=== PATIENT | female | born 1965 | race Two or more races ===

== ENCOUNTER 2022-02-10 16:08 | Inpatient (IN) ==
[2022-02-10 17:20] LABS: Basophils # (auto) 0.07 K/uL (0-0.2); Basophils % (auto) 0.6 %; Eosinophils # (auto) 0.25 K/uL (0-0.50); Eosinophils % (auto) 2.3 %; Hematocrit (blood only) 37.4 % (34.1-44.9); Hemoglobin 12.6 g/dl (12.0-16.0); Immature Granulocytes # (auto) 0.03 K/uL (0.00-0.02); Immature Granulocytes % (auto) 0.3 %; Lymphocytes # (auto) 3.29 K/uL (1.2-3.4); Lymphocytes % (auto) 30.4 %; Mean Corpuscular Hemoglobin 26.8 pg (25.0-34.0); Mean Corpuscular Hgb Conc 33.7 g/dL (32.0-36.0); Mean Corpuscular Volume 79.6 fL (80.0-100.0); Mean Platelet Volume 10.5 fL (9.4-12.3); Monocytes # (auto) 0.61 K/uL (0.24-0.82); Monocytes % (auto) 5.6 %; Neutrophils # (auto) 6.58 K/uL (1.4-6.5); Neutrophils % (auto) 60.8 %; Platelet Count 247 K/uL (130-400); RDW Coefficient of Variation 13.5 % (11.5-14.5); RDW Standard Deviation 38.6 fL (36.4-46.3); White Blood Count 10.83 K/ul (4.8-10.8)
--- NOTE | 2022-02-10 17:34 | Emergency Department Note ---
"History of Present Illness General Chief complaint: Abnormal Labs/Diagnostic Testing Stated complaint: ABNORMAL ABDOMINAL LABS Time Seen by Provider: 02/10/22 17:17 Source: patient, family (Daughter who is at the bedside), EMS and old records reviewed Mode of arrival: ambulatory Limitations: no limitations History of Present Illness Maximum Pain Intensity: 3 This patient is a 56-year-old female who comes in after having left flank pain that started yesterday morning. Its actually more up in her posterior ribs. No dysuria hematuria she took omeprazole got better she went to urgent care where they did x-ray and EKG which were unremarkable they did abdominal x-ray which supposedly had some dilated loops of bowel suspending here for a CAT scan. No fever no dysuria does hurt when she bruits. Normal bowel movement. No blood or melena stool. No fall or injury. No calf tenderness or asymmetry. Home Medications Medication Instructions Recorded Confirmed Type Bizoran--From Home Pharmacy 1 tab PO DAILY 02/10/22 02/10/22 History multivitamin 1 tab PO DAILY 02/10/22 02/10/22 History omeprazole 20 mg tablet,delayed 20 mg PO AC 02/10/22 02/10/22 History release Allergies Allergy/AdvReac Type Severity Reaction Status Date / Time shrimp Allergy Intermediate ITCHY HIVES Verified 02/10/22 19:17 Past Med/Surg History Social History Feels Safe at Home: Yes Immunizations: Past medical historychildbirth. Hemorrhoids. No history of other abdominal surgeries. No diabetes no cardiac disease no blood clot history Social history she is from [facility] she has not had any recent travel and is been here for several months Physical Exam Vital Signs Vital Signs - 24 hr 02/10/22 16:14 02/10/22 18:40 02/10/22 19:13 Temperature 36.8 C Temperature Source Temporal Artery Scan Pulse Rate 87 Pulse Rate [Apical] 88 80 Respiratory Rate 18 18 20 Respiratory Effort / Characteristics Non-Labored Respiratory Depth Normal Respiratory Pattern Regular Blood Pressure 126/89 Blood Pressure [Right Arm] 129/80 127/76 Blood Pressure Mean 101 Blood Pressure Mean [Right Arm] 96 93 Blood Pressure Position Sitting Pulse Oximetry 98 98 98 Oxygen Delivery Method Room Air Room Air Room Air Sepsis Recent Fever Within 48 Hours No Sepsis New/Unexplained Change in Mental Status No Sepsis Action Taken by Nursing No Action Required 02/10/22 20:40 Temperature Temperature Source Pulse Rate Pulse Rate [Apical] 77 Respiratory Rate 20 Respiratory Effort / Characteristics Respiratory Depth Respiratory Pattern Blood Pressure Blood Pressure [Right Arm] 136/88 Blood Pressure Mean Blood Pressure Mean [Right Arm] 104 Blood Pressure Position Pulse Oximetry 99 Oxygen Delivery Method Room Air Sepsis Recent Fever Within 48 Hours Sepsis New/Unexplained Change in Mental Status Sepsis Action Taken by Nursing General: Well developed well nourished in no acute distress, breathing comfortably on room air. Normal speech HEENT: Normal cephalic atraumatic. Pupils are equal round and reactive to light. Extraocular movements are intact. Oropharynx is pink with moist mucous membranes. No swelling of the mouth lips or tongue. Neck: Supple with a midline trachea. No meningeal signs or stiffness, no JVD or bruits. No Stridor. Chest: Clear to auscultation bilaterally. No wheezes or rhonchi. No increased work of breathing. When she takes a deep breath it hurts in the left posterior chest. Heart: Regular rate and rhythm without murmurs or gallops. Abdomen: Soft nontender, nondistended without rebound guarding or rigidity. Extremities: No cyanosis clubbing or edema. No calf tenderness or assymetry Spine/Back. Non tender to palpation. No CVA tenderness Skin: Good turgor without rashes. Neurologic exam: Cranial nerves two through 12 are intact. Motor and sensation are intact and symmetrical throughout. Course Administered Medications Sodium Chloride (Nss 1000ml) 1,000 mls @ 125 mls/hr IV .Q8H [facility] Stop: 03/12/22 19:44 Last Admin: 02/10/22 19:55 Dose: 125 mls/hr Documented By: DEBBIEG Discontinued Medications Ioversol (Optiray 320 125ml) 119 ml IV ONCE ONE Stop: 02/10/22 18:18 Last Admin: 02/10/22 18:17 Dose: 1 ml Documented By: LUCIO Medical Decision Making Differential Diagnosis Intra-abdominal process, infection, pneumothorax, pulmonary embolism, kidney stone, kidney disease, electrolyte or metabolic abnormal Medical Records Attestation: I reviewed the patient's medical records. Home Medications Current Medication List: was personally reviewed by me Laboratory Data Attestation: I reviewed the patient's lab results. Result diagrams: 02/10/22 17:14 02/10/22 17:14 Lab Results 02/10/22 02/10/22 02/10/22 Range/Units 17:14 17:14 18:48 WBC 10.83 H (4.8-10.8) K/ul RBC 4.70 (3.93-5.22) M/uL Hgb 12.6 (12.0-16.0) g/dl Hct 37.4 (34.1-44.9) % MCV 79.6 L (80.0-100.0) fL MCH 26.8 (25.0-34.0) pg MCHC 33.7 (32.0-36.0) g/dL RDW Std Deviation 38.6 (36.4-46.3) fL RDW Coeff of Anita 13.5 (11.5-14.5) % Plt Count 247 (130-400) K/uL MPV 10.5 (9.4-12.3) fL Immature Gran % (Auto) 0.3 % Neut % (Auto) 60.8 % Lymph % (Auto) 30.4 % [place] % (Auto) 5.6 % Eos % (Auto) 2.3 % Baso % (Auto) 0.6 % Neut # (Auto) 6.58 H (1.4-6.5) K/uL Lymph # (Auto) 3.29 (1.2-3.4) K/uL [place] # (Auto) 0.61 (0.24-0.82) K/uL Eos # (Auto) 0.25 (0-0.50) K/uL Baso # (Auto) 0.07 (0-0.2) K/uL Immature Gran # (Auto) 0.03 H (0.00-0.02) K/uL Sodium 139 (136-145) mmol/L Potassium 3.9 (3.5-5.1) mmol/L Chloride 104 (98-107) mmol/L Carbon Dioxide 28 (21-32) mmol/L Anion Gap 7 (3-11) BUN 14 (6-23) mg/dl Creatinine 0.70 (0.6-1.2) mg/dl Est Cr Clr Drug Dosing 79.7 ml/min Est GFR ( Amer) 113.0 ml/min Est GFR (Non-Af Amer) 97.5 ml/min BUN/Creatinine Ratio 20.0 (10-20) Glucose 94 (70-99(Fasting)) mg/dl Calcium 9.8 (8.5-10.1) mg/dl Total Bilirubin 0.5 (0.2-1.0) mg/dl AST 18 (13-39) U/L ALT 17 (7-52) U/L Alkaline Phosphatase 72 (34-104) U/L Total Protein 8.0 (6.0-8.3) gm/dl Albumin 4.6 (3.4-5.0) gm/dl Globulin 3.4 (2.5-4.0) gm/dl Albumin/Globulin Ratio 1.4 (0.9-2) Lipase 27 (11-82) U/L Urine Color Yellow Urine Appearance Clear (Clear) Urine pH 7.0 (4.5-7.5) Ur Specific [place] > 1.045 H (1.000-1.030) Urine Protein Negative (Negative) Urine Glucose (UA) Negative (Negative) Urine Ketones Negative (Negative) Urine Blood Negative (Negative) Urine Nitrite Negative (Negative) Urine Bilirubin Negative (Negative) Urine Urobilinogen Negative (Negative) Ur Leukocyte Esterase Negative (Negative) SARS-CoV-2, RNA, NAAT (NEGATIVE) 02/10/22 Range/Units 19:20 WBC (4.8-10.8) K/ul RBC (3.93-5.22) M/uL Hgb (12.0-16.0) g/dl Hct (34.1-44.9) % MCV (80.0-100.0) fL MCH (25.0-34.0) pg MCHC (32.0-36.0) g/dL RDW Std Deviation (36.4-46.3) fL RDW Coeff of Anita (11.5-14.5) % Plt Count (130-400) K/uL MPV (9.4-12.3) fL Immature Gran % (Auto) % Neut % (Auto) % Lymph % (Auto) % [place] % (Auto) % Eos % (Auto) % Baso % (Auto) % Neut # (Auto) (1.4-6.5) K/uL Lymph # (Auto) (1.2-3.4) K/uL [place] # (Auto) (0.24-0.82) K/uL Eos # (Auto) (0-0.50) K/uL Baso # (Auto) (0-0.2) K/uL Immature Gran # (Auto) (0.00-0.02) K/uL Sodium (136-145) mmol/L Potassium (3.5-5.1) mmol/L Chloride (98-107) mmol/L Carbon Dioxide (21-32) mmol/L Anion Gap (3-11) BUN (6-23) mg/dl Creatinine (0.6-1.2) mg/dl Est Cr Clr Drug Dosing ml/min Est GFR ( Amer) ml/min Est GFR (Non-Af Amer) ml/min BUN/Creatinine Ratio (10-20) Glucose (70-99(Fasting)) mg/dl Calcium (8.5-10.1) mg/dl Total Bilirubin (0.2-1.0) mg/dl AST (13-39) U/L ALT (7-52) U/L Alkaline Phosphatase (34-104) U/L Total Protein (6.0-8.3) gm/dl Albumin (3.4-5.0) gm/dl Globulin (2.5-4.0) gm/dl Albumin/Globulin Ratio (0.9-2) Lipase (11-82) U/L Urine Color Urine Appearance (Clear) Urine pH (4.5-7.5) Ur Specific [place] (1.000-1.030) Urine Protein (Negative) Urine Glucose (UA) (Negative) Urine Ketones (Negative) Urine Blood (Negative) Urine Nitrite (Negative) Urine Bilirubin (Negative) Urine Urobilinogen (Negative) Ur Leukocyte Esterase (Negative) SARS-CoV-2, RNA, NAAT NEGATIVE (NEGATIVE) Imaging Data Radiologist's Impression: Abdomen/Pelvis CT 02/10/22 17:30 CT angio chest PE protocol, CT abd pelvis IV con only CT DOSE: 496.58 mGy.cm HISTORY: 56 years-old Female with PE. Acute shortness of breath with left flank pain TECHNIQUE: CT abdomen and pelvis with IV contrast only was also obtained. Multiple CTA images of the chest were obtained after the intravenous a dministration of 120 ml Optiray. Coronal and sagittal MIPS were obtained from the axial data set and were submitted for review. All measurements were obtained according to NASCET criteria. A dose lowering technique was utilized adhering to the principles of ALARA. COMPARISON: None. FINDINGS: CTA: The heart is normal in size. Moderate calcifications. Atherosclerosis of the aorta without aneurysm. Unremarkable pulmonary artery. The subsegmental branches are not well opacified secondary to contrast bolus timing. CT CHEST: Unremarkable thyroid. No lymphadenopathy. No pneumothorax, pleural effusion, airspace consolidation or overt pulmonary edema. Mild subsegmental bibasilar groundglass densities suggest atelectasis. There are no suspicious pulmonary nodules or masses identified. The central airways are patent. Unremarkable soft tissues. No acute fracture. Spondylitic spurring of the thoracic spine. CT ABDOMEN/PELVIS: No pneumatosis or pneumoperitoneum. Study is degraded by respiratory motion artifact. Mild right hemidiaphragmatic elevation. Remarkable spleen, pancreas, gallbladder and adrenal glands. The liver is unremarkable. There is patency of the hepatic and portal veins. Symmetric enhancement of the kidneys. No hydronephrosis. Unremarkable urinary bladder, uterus and adnexa. Atherosclerosis of the aorta without aneurysm. There is no lymphadenopathy identified. No bowel obstruction is no small bowel obstruction. Redundancy of the sigmoid colon. There is narrowing of the sigmoid colon on image 238 series 6 without obstructing mass. Mild upstream gaseous distention of the large bowel with mild swirling of the pelvic mesentery. Mild to moderate fecal retention. Normal appendix. Unremarkable soft tissues. No acute fracture. Degenerative changes of the spine, pelvis and hips. IMPRESSION: 1. Focal narrowing of the mid sigmoid colon with upstream colonic gaseous distention. Additionally, there is mild swirling of the pelvic mesentery. Findings may represent developing sigmoid volvulus. GI consultation recommended. 2. No small bowel obstruction. 3. Moderate fecal retention. 4. No acute intrathoracic abnormality. No pulmonary emboli. ACT 112: Negative or not required by law. The above report was generated using voice recognition software. It may contain grammatical, syntax or spelling errors. Electronically signed by: Luigi Wynne M.D. 02/10/2022 6:45 PM Chest CTA 02/10/22 17:30 CT angio chest PE protocol, CT abd pelvis IV con only CT DOSE: 496.58 mGy.cm HISTORY: 56 years-old Female with PE. Acute shortness of breath with left fla nk pain TECHNIQUE: CT abdomen and pelvis with IV contrast only was also obtained. Multiple CTA images of the chest were obtained after the intravenous administration of 120 ml Optiray. Coronal and sagittal MIPS were obtained from the axial data set and were submitted for review. All measurements were obtained according to NASCET criteria. A dose lowering technique was utilized adhering to the principles of ALARA. COMPARISON: None. FINDINGS: CTA: The heart is normal in size. Moderate calcifications. Atherosclerosis of the aorta without aneurysm. Unremarkable pulmonary artery. The subsegmental branches are not well opacified secondary to contrast bolus timing. CT CHEST: Unremarkable thyroid. No lymphadenopathy. No pneumothorax, pleural effusion, airspace consolidation or overt pulmonary edema. Mild subsegmental bibasilar groundglass densities suggest atelectasis. There are no suspicious pulmonary nodules or masses identified. The central airways are patent. Unremarkable soft tissues. No acute fracture. Spondylitic spurring of the thoracic spine. CT ABDOMEN/PELVIS: No pneumatosis or pneumoperitoneum. Study is degraded by respiratory motion artifact. Mild right hemidiaphragmatic elevation. Remarkable spleen, pancreas, gallbladder and adrenal glands. The liver is unremarkable. There is patency of the hepatic and portal veins. Symmetric enhancement of the kidneys. No hydronephrosis. Unremarkable urinary bladder, uterus and adnexa. Atherosclerosis of the aorta without aneurysm. There is no lymphadenopathy identified. No bowel obstruction is no small bowel obstruction. Redundancy of the sigmoid colon. There is narrowing of the sigmoid colon on image 238 series 6 without obstructing mass. Mild upstream gaseous distention of the large bowel with mild swirling of the pelvic mesentery. Mild to moderate fecal retention. Normal appendix. Unremarkable soft tissues. No acute fracture. Degenerative changes of the spine, pelvis and hips. IMPRESSION: 1. Focal narrowing of the mid sigmoid colon with upstream colonic gaseous distention. Additionally, there is mild swirling of the pelvic mesentery. Findi ngs may represent developing sigmoid volvulus. GI consultation recommended. 2. No small bowel obstruction. 3. Moderate fecal retention. 4. No acute intrathoracic abnormality. No pulmonary emboli. ACT 112: Negative or not required by law. The above report was generated using voice recognition software. It may contain grammatical, syntax or spelling errors. Electronically signed by: Luigi Wynne M.D. 02/10/2022 6:45 PM MDM Narrative This patient comes in as described above. I saw her briefly in the waiting room. IV access was establishedand blood work was obtained she was reassessed frequently. She was sent for abdominal abdominal scan from urgent care however I am more concerned about her pain being pleuritic in the posterior chest so I ordered a CTA of the chest in addition to the CAT scan the abdomen. Additional blood work was obtained she was reassessed frequently. She has no fever here or at home. Her white count is 10. She has no significant electrolyte or metabolic abnormalities. she has had no vomiting. She was complaining more left flank pain but now is complaining more of right lower quadrant abdominal pain. I did get a call from Dr. Wynne, the radiologist ,who said that she has no evidence of PE however she does have a focal narrowing of mid sigmoid colon with upstream colonic gaseous distention additionally there is mild swelling of the pelvic mesentery. Findings may represent a developing sigmoid volvulus GI consultation is recommended. In light of this, I did consult GI and talk to Dr. Christina. He did not feel was likely a volvulus but recommended we treat with GoLytely which could treat the condition and also prep her overnight in case if she needs a colonoscopy tommorrow. I have consulted the admitting team to see her in the ER for observation and further evaluation Impression & Plan Abdominal pain, Volvulus of sigmoid colon, Lab test negative for COVID-19 virus, Acute left flank pain Discharge Plan Visit Data Chief Complaint: Abnormal Labs/Diagnostic Testing Stated Complaint: ABNORMAL ABDOMINAL LABS ED Provider: Larry Onofre Discharge Problem: Abdominal pain, Volvulus of sigmoid colon, Lab test negative for COVID-19 virus, Acute left flank pain Forms Stand Alone Forms: My [id number] | [employer] Prescriptions Prescriptions: No Action multivitamin Tablet 1 tab PO DAILY omeprazole 20 mg Tablet,Delayed Release (Dr/Ec) 20 mg PO AC Bizoran--From Home Pharmacy 1 tab PO DAILY Rx Instructions: GOOGLED---BIZORAN 5MG/20 MG--AMLODIPINE/OLMESARTAN Referrals Referrals: PCP,NO [Primary Care Provider] - : Abdominal pain Qualifiers: Abdominal location: generalized Qualified Code(s): R10.84 - Generalized abdominal pain"
[2022-02-10 17:59] LABS: Albumin Globulin Ratio 1.4 (0.9-2); Albumin Level 4.6 gm/dl (3.4-5.0); Bilirubin,Total 0.5 mg/dl (0.2-1.0); Calcium 9.8 mg/dl (8.5-10.1); Creatinine Clr Calc Pharmacy 79.7 ml/min; Est GFR (Non-African American) 97.5 ml/min; Globulin 3.4 gm/dl (2.5-4.0); Potassium 3.9 mmol/L (3.5-5.1)
[2022-02-10] MEDS ORDERED: OPTIRAY 320 125ml IV ONE (18:17)
--- NOTE | 2022-02-10 18:47 | CT Scan Report ---
CT angio chest PE protocol, CT abd pelvis IV con only CT DOSE: 496.58 mGy.cm HISTORY: 56 years-old Female with PE. Acute shortness of breath with left flank pain TECHNIQUE: CT abdomen and pelvis with IV contrast only was also obtained. Multiple CTA images of the chest were obtained after the intravenous administration of 120 ml Optiray. Coronal and sagittal MIP S were obtained from the axial data set and were submitted for review. All measurements were obtaine d according to NASCET criteria. A dose lowering technique was utilized adhering to the principles of ALARA. COMPARISON: None. FINDINGS: CTA: The heart is normal in size. Moderate calcifications. Atherosclerosis of the aorta without aneurysm. Unremarkable pulmonary artery. The subsegmental branches are not well opacified secondary to contrast bolus timing. CT CHEST: Unremarkable thyroid. No lymphadenopathy. No pneumothorax, pleural effusion, airspace consolidation o r overt pulmonary edema. Mild subsegmental bibasilar groundglass densities suggest atelectasis. There are no suspicious pulmonary nodules or masses identified. The central airways are patent. Unremarkab le soft tissues. No acute fracture. Spondylitic spurring of the thoracic spine. CT ABDOMEN/PELVIS: No pneumatosis or pneumoperitoneum. Study is degraded by respiratory motion artifact. Mild right bren diaphragmatic elevation. Remarkable spleen, pancreas, gallbladder and adrenal glands. The liver is un remarkable. There is patency of the hepatic and portal veins. Symmetric enhancement of the kidneys. No hydronephrosis. Unremarkable urinary bladder, uterus and adn exa. Atherosclerosis of the aorta without aneurysm. There is no lymphadenopathy identified. No bowel obstruction is no small bowel obstruction. Redundancy of the sigmoid colon. There is narrowing of the sigmoid colon on image 238 series 6 without obstructing mass. Mild upstream gaseous distention of th e large bowel with mild swirling of the pelvic mesentery. Mild to moderate fecal retention. Normal ap pendix. Unremarkable soft tissues. No acute fracture. Degenerative changes of the spine, pelvis and h ips. IMPRESSION: 1. Focal narrowing of the mid sigmoid colon with upstream colonic gaseous distention. Additionally, t here is mild swirling of the pelvic mesentery. Findings may represent developing sigmoid volvulus. GI consultation recommended. 2. No small bowel obstruction. 3. Moderate fecal retention. 4. No acute intrathoracic abnormality. No pulmonary emboli. ACT 112: Negative or not required by law. The above report was generated using voice recognition software. It may contain grammatical, syntax o r spelling errors. Electronically signed by: Luigi Wynne M.D. 02/10/2022 6:45 PM
[2022-02-10 19:03] LABS: Appearance Urine Clear (Clear); Bilirubin Urine Negative (Negative); Blood Urine Negative (Negative); Color Urine Yellow; Glucose Urine UA Negative (Negative); Ketones Urine Negative (Negative); Leukocyte Esterase Urine Negative (Negative); Nitrite Urine Negative (Negative); Protein Urine Negative (Negative); Specific Gravity Urine > 1.045 (1.000-1.030); Urobilinogen Urine Negative (Negative)
[2022-02-10] MEDS: SODIUM CHLORIDE 0.9% 1000ML 1,000 ML IV SCH (19:55)
--- NOTE | 2022-02-10 20:37 | History & Physical Report ---
Date of Service February 10, 2022 Assessment & Plan (1) Acute left flank pain: Plan: 56yo female with a history of HTN presents with a two-day history of left flank pain. Left flank pain suspected secondary to sigmoid volvulus VSS, no lab abnormalities Urinalysis without sign of urinary infection Imaging: CT a/p: focal narrowing of mid-sigmoid colon with upstream gaseous distention and mild swirling of the pelvic mesentery concerning for possible sigmoid volvulus; no SBO, moderate fecal retention, no other acute intraabdominal abnormality CTA chest: no acute abnormality, no evidence of PE Abdominal exam negative for tenderness, abdomen not acute, no em/urgent intervention indicated at this time Admit to med/surg Continue NSS @ 125mLhr Protonix 40mg IV bid Tentative bowel prep in AM ahead of possible procedure, per Dr. Christina NPO Trend daily CBC, CMP Hypertension Continue home regimen (patient is on Bizoran once daily at home, which is amlodipine 5mg combined with olmesartan 20mg) FEN: NPO, NSS @ 125mL/hr Code status: full code Kake language: Hebrew, patient requires iPad slubber frame changer if daughter is not present DVT ppx: SCDs Consults: gastroenterology Surrogate decision-maker in case of an emergency: Karley Mathew (daughter - cell: [phone]) (2) Volvulus of sigmoid colon: (3) Hypertension: History of Present Illness Primary Care Provider: NO PCP 56yo female with a history of HTN presents with a two-day history of left flank pain. Pain started gradually and have been worsening. Denies other symptoms or any history of similar symptoms. Of note, patient is exclusively Hebrew- speaking, and requires an slubber frame changer if her daughter is not present at the time . Patient went to urgent care yesterday out of concern the pain could be cardiac in origin - at urgent care, EKG was done and was reportedly unremarkable. KUB reportedly showed some dilated loops of bowel which prompted patient to present to the ED. Patient also endorses mild SOB. Denies urinary symptoms or pain with bowel movements. Patient denies fever, chills, headache, change in vision, CP, abdominal pain, nausea, vomiting, diarrhea, lightheadedness, dizziness, vertigo, weakness, numbness, tingling, or other symptoms. No recent illnesses, no falls or recent injury. Surrogate decision-maker in case of an emergency: Karley Mathew (daughter - cell: [phone]) Allergies Allergy/AdvReac Type Severity Reaction Status Date / Time shrimp Allergy Intermediate ITCHY HIVES Verified 02/10/22 19:17 Home Medications Medication Instructions Recorded Confirmed Type Bizoran--From Home Pharmacy 1 tab PO DAILY 02/10/22 02/10/22 History multivitamin 1 tab PO DAILY 02/10/22 02/10/22 History omeprazole 20 mg tablet,delayed 20 mg PO AC 02/10/22 02/10/22 History release polyethylene glycol 3350 17 gram 17 g PO DAILY #100 ea 02/12/22 Rx oral powder packet (Miralax) Past Med/Surg History Medical History Hypertension Social History Smoking Status: Never smoker Second Hand Exposure: No; Hx Alcohol Use: No Hx Substance Use: No Preferred Language: Hebrew Communication Tools: IPad Territory Sales Professional Required: Yes Current Living Situation: Spouse Current Living Situation Comment: Lives in [facility] here visiting her daughter Feels Safe at Home: Yes Assistive Devices: None Physical Exam Physical Exam: Constitutional: well-appearing, no acute distress HEENT: NCAT, no conjunctival injection, no scleral icterus CV: regular rhythm, no murmur appreciated, extremities well-perfused, no LE edema Resp: CTABL, no wheezes/rales/rhonchi appreciated, no increased work of breathing GI: soft, nondistended, abdomen completely nontender to palpation, BS hypoactive MSK: mild left flank tenderness Skin: warm, dry, no rash appreciated Neuro: alert, oriented, no focal neurologic deficit appreciated Results & Data Results & Data ([facility]) Vital Signs (Past 12 Hours) Vital Signs Temp Pulse Pulse Resp BP BP Pulse Ox 02/10/22 19:13 80 20 127/76 98 02/10/22 18:40 88 18 129/80 98 02/10/22 16:14 36.8 C 87 18 126/89 98 O2 Del Method 02/10/22 19:13 Room Air 02/10/22 18:40 Room Air 08/01/22 16:14 Room Air Supervising Physician Co-Signing Physician Notes Attending addendum: I have physically seen this patient, have supervised the medical residents activities, and agree with the H&P unless as otherwise noted. Assessment and Plan: Possible sigmoid volvulus/left flank pain- N.p.o. Gastroenterology aware and asked the patient undergo bowel prep for possible colonoscopy in a.m. NSS 125 mils per hour Admit to [facility] Protonix 40 mg IV twice daily Follow serial CBC with differential and chemistry profile Hypertension- Hold amlodipine and olmesartan while n.p.o. 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
[2022-02-10] MEDS: PANTOprazole 40 MG in SYRINGE 0 ML IV SCH (22:45)
[2022-02-11] MEDS ORDERED: MELATONIN 3 MG TAB PO PRN (00:18)
[2022-02-11] MEDS ORDERED: ACETAMINOPHEN 325 MG TAB PO PRN (00:18)
[2022-02-11] MEDS: SODIUM CHLORIDE 0.9% 1000ML 1,000 ML IV SCH ×2 (03:21→12:12)
[2022-02-11] MEDS: PANTOprazole 40 MG in SYRINGE 0 ML IV SCH (07:45)
[2022-02-11] MEDS: OLMESARTAN MEDOXOMIL 20 MG TAB PO SCH (09:18)
[2022-02-11] MEDS: amLODIPine BESYLATE 5 MG TAB PO SCH (09:18)
--- NOTE | 2022-02-11 09:22 | Gastrointestinal Consultation ---
Date of Consultation February 11, 2022 Assessment & Plan (1) Abnormal CT scan, sigmoid colon: Unclear if the findings represent a developing Volvulus and patient's physical exam is not particularly consistent with an acute volvulus picture. At the present time, we will obtain a STAT KUB and pending results will make further decision regarding timing/plans for intervention. Supervising Physician Co-Signing Physician Notes I personally evaluated the patient and agree with the findings as documented by Ambika Victor, PAC Exam: Constitutional: WD/WN, vitals as above General: EOM intact bilaterally Neck: normal visual inspection Respiratory: normal respiratory effort, lungs clear to auscultation Cardiovascular: RRR, no murmur, no edema Gastrointestinal: abdomennormal to inspection, nondistended, soft, nontender, no hepatosplenomegaly Musculoskeletal: no cyanosis, head normal to inspection Skin: no rashes, warm and dry Neurologic: moves all extremities Psychiatric: A and O x3, euthymic affect proceed with colonoscopy. risks/benefits and procedure discussed with patient, who agrees to proceed History of Present Illness Reason for Consultation: Possible Volvulus Attending Physician: Tori Stephen MD History of Present Illness Patient is a 56 yo Serbian-speaking female with a PMH of HTN who presented to the ED due to flank pain predominantly left-sided. She went to urgent care on 02/10/2022 for further evaluation of this issue and a KUB was abnormal so she was referred to the ED. In the ED, she underwent a CT scan that showed fecal retention, narrowing of the sigmoid colon, and concern for developing sigmoid volvulus. WBC count was slightly elevated. No lactic acid obtained. The on-call GI provider was contacted and felt that this was unlikely to be a true volvulus given patient's stability and advised a bowel prep for her constipation. Unclear of any previous history of colonoscopy. She reports improvement of pain since admission. Her daughter is available for assistance with history. Patient is st ill not moving her bowels. Allergies Allergy/AdvReac Type Severity Reaction Status Date / Time shrimp Allergy Intermediate ITCHY HIVES Verified 02/10/22 19:17 Home Medications Medication Instructions Recorded Confirmed Type Bizoran--From Home Pharmacy 1 tab PO DAILY 02/10/22 02/10/22 History multivitamin 1 tab PO DAILY 02/10/22 02/10/22 History omeprazole 20 mg tablet,delayed 20 mg PO AC 02/10/22 02/10/22 History release Patient History Medical History Hypertension Social History Smoking Status: Never smoker Second Hand Exposure: No; Do You Dip or Chew Tobacco: No; Tobacco Cessation Education Requested by Patient: No Hx Alcohol Use: No Hx Substance Use: No Preferred Language: Serbian Communication Ability Comment: needs ipad conference interpreter having technical difficulty at the present time. Communication Tools: Physical Gestures and Other Captain Fire Prevention Bureau Required: Yes Current Living Situation: Spouse Current Living Situation Comment: Lives in [facility] here visiting her daughter Other Information That Helps Us Care for You: No Feels Safe at Home: Yes Safety Concerns: Feels Safe At This Time Assistive Devices: None Review of Systems Constitutional: no fever and no chills Respiratory: + dyspnea Cardiovascular: no chest pain Gastrointestinal: + abdominal pain (improved) and + constipation Physical Exam Constitutional: well developed Neck: normal visual inspection Respiratory: normal respiratory effort Cardiovascular: Rate/Rhythm: regular rate Gastrointestinal (Abdomen): Inspection/Auscultation: abdomen normal to inspection and normal bowel sounds Percussion/Palpation: abdomen soft (but slightly distended); abdomen nontender Musculoskeletal: Head/Neck/Chest: normocephalic Psychiatric: Orientation: alert and oriented x 3 Results & Data ([facility]) Vital Signs (Past 12 Hours) Vital Signs Temp Pulse Pulse Resp BP Pulse Ox O2 Del Method 02/11/22 07:26 36.3 C L 74 14 122/79 99 Room Air 02/11/22 00:10 36.8 C 62 16 124/78 99 Room Air 02/10/22 23:03 75 20 120/78 99 Room Air 02/10/22 22:12 78 20 119/86 97 Room Air PG Care Time/CCT Total # of Minutes Spent Total Time Spent with Patient: Total time spent is greater than 50% in coordination of care (as documented) at patient's floor/unit and/or counseling patient: Coding Level of Care Code 08795 Inpt Consult Level [address] scan, sigmoid colon R93.3
[2022-02-11 09:27] LABS: Basophils # (auto) 0.04 K/uL (0-0.2); Basophils % (auto) 0.6 %; Eosinophils # (auto) 0.16 K/uL (0-0.50); Eosinophils % (auto) 2.2 %; Immature Granulocytes # (auto) 0.01 K/uL (0.00-0.02); Immature Granulocytes % (auto) 0.1 %; Lymphocytes # (auto) 2.35 K/uL (1.2-3.4); Lymphocytes % (auto) 32.3 %; Mean Corpuscular Hemoglobin 26.4 pg (25.0-34.0); Mean Corpuscular Hgb Conc 32.4 g/dL (32.0-36.0); Mean Corpuscular Volume 81.3 fL (80.0-100.0); Mean Platelet Volume 10.7 fL (9.4-12.3); Monocytes # (auto) 0.41 K/uL (0.24-0.82); Monocytes % (auto) 5.6 %; Neutrophils % (auto) 59.2 %; Platelet Count 222 K/uL (130-400); RDW Coefficient of Variation 13.3 % (11.5-14.5); RDW Standard Deviation 39.4 fL (36.4-46.3); Red Blood Count 4.55 M/uL (3.93-5.22); White Blood Count 7.27 K/ul (4.8-10.8)
[2022-02-11 09:58] LABS: Albumin Globulin Ratio 1.2 (0.9-2); Albumin Level 4.1 gm/dl (3.4-5.0); BUN Creatinine Ratio 15.9 (10-20); Bilirubin,Total 0.7 mg/dl (0.2-1.0); Calcium 9.2 mg/dl (8.5-10.1); Chol HDL Ratio 3.6 (0-5); Creatinine Clr Calc Pharmacy 80.8 ml/min; Est GFR (African American) 113.6 ml/min; Globulin 3.3 gm/dl (2.5-4.0); Magnesium 1.9 mg/dl (1.7-2.4); Phosphorus 4.3 mg/dl (2.5-4.9); Total Protein 7.4 gm/dl (6.0-8.3)
--- NOTE | 2022-02-11 10:09 | XRay Report ---
KUB CLINICAL HISTORY: Concern for volvulus. Left upper quadrant pain. COMPARISON STUDY: CT of the abdomen and pelvis February 10, 2022. FINDINGS: Sigmoid colon is moderately dilated, measuring 9 cm in caliber. This has slightly increased since CT of February 10, 2022. No evidence for a small bowel obstruction. Moderate amount stool within the rectum is present. IMPRESSION: Slight increase in moderate sigmoid colon distention. ACT 112: Negative or not required by law. Electronically signed by: Paul Rosado M.D. 02/11/2022 10:07 AM
[2022-02-11] MEDS ORDERED: SOD PHOSPHATE/SOD BIPHOSPHATE ENEMA 132 ML BTL PR STA (10:47)
[2022-02-11 10:57] LABS: Estimated Average Glucose 123 mg/dl; Hemoglobin A1C 5.9 % (4.5-5.6)
--- NOTE | 2022-02-11 13:27 | Anesthesiology Consultation ---
Date of Service February 11, 2022 History Surgery Operation Date: 02/11/22 16:45 Proposed Procedures p Colonoscopy Dr. Sanford Christina MD Height/Weight Height: 5 ft 2 in Weight: 63.82 kg Allergies Allergy/AdvReac Type Severity Reaction Status Date / Time shrimp Allergy Intermediate ITCHY HIVES Verified 02/10/22 19:17 Medications Home Medications Medication Instructions Recorded Confirmed Last Taken Bizoran--From Home Pharmacy 1 tab PO DAILY 02/10/22 02/10/22 02/10/22 multivitamin 1 tab PO DAILY 02/10/22 02/10/22 02/10/22 omeprazole 20 mg tablet,delayed 20 mg PO AC 02/10/22 02/10/22 02/10/22 release Active Medications Generic Name Dose Route Start Last Admin Trade Name Freq PRN Reason Stop Dose Admin Amlodipine Besylate 5 mg 02/11/22 09:00 02/11/22 09:18 Amlodipine Besylate 5 Mg Tab PO 03/13/22 08:59 5 mg QAM RODOLFO Administration Sodium Chloride 1,000 mls @ 125 mls/hr 02/10/22 19:45 02/11/22 12:12 Nss 1000ml IV 03/12/22 19:44 125 mls/hr .Q8H RODOLFO Administration Pantoprazole Sodium 40 mg/ 10 mls @ 5 mls/min 02/10/22 22:15 02/11/22 07:45 Syringe IV 03/12/22 22:14 5 mls/min BID RODOLFO Administration Olmesartan 20 mg 02/11/22 09:00 02/11/22 09:18 Olmesartan Medoxomil 20 Mg Tab PO 03/13/22 08:59 20 mg QAM RODOLFO Administration Past Medical History Medical History Hypertension Exercise / Class Metabolic Activity II 4-5 Yardwork/Stairs/Walk up hill Past Anesthesia History No Hx of Anesthesia Complications and No Family Hx of Anesthesia Complications Social History Smoking Status: Never smoker Do You Dip or Chew Tobacco: No Hx Alcohol Use: No Hx Substance Use: No substance use type: does not use Physical Exam Vital Signs Last Vital Signs Temp 36.3 C L 02/11/22 07:26 Pulse 66 02/11/22 09:17 Resp 14 02/11/22 07:26 BP 139/78 02/11/22 09:17 Pulse Ox 99 02/11/22 07:26 O2 Del Method 02/11/22 07:26 Testing Laboratory Results 02/11/22 08:56 02/11/22 08:56 Hemoglobin A1c 5.9 % (4.5-5.6) H 02/11/22 08:56 Urine Color Yellow 02/10/22 18:48 Urine Appearance Clear (Clear) 02/10/22 18:48 Urine pH 7.0 (4.5-7.5) 02/10/22 18:48 Ur Specific [place] > 1.045 (1.000-1.030) H 02/10/22 18:48 Urine Protein Negative (Negative) 02/10/22 18:48 Urine Glucose (UA) Negative (Negative) 02/10/22 18:48 Urine Ketones Negative (Negative) 02/10/22 18:48 Urine Nitrite Negative (Negative) 02/10/22 18:48 Ur Leukocyte Esterase Negative (Negative) 02/10/22 18:48
[2022-02-11] MEDS ORDERED: MINERAL OIL 30 ML UDC ONE (13:49)
[2022-02-11] MEDS ORDERED: LIDOCAINE 2% MPF LOCAL 5 ML VIAL INFIL ONE (13:57)
[2022-02-11] MEDS ORDERED: PROPOFOL IV EMULSION 10 MG/ML 20 ML VIAL IV ONE ×2 (13:57→14:20)
[2022-02-11] MEDS ORDERED: fentaNYL citrate 100 MCG/2 ML VIAL ONE (14:03)
[2022-02-11] MEDS ORDERED: MIDAZOLAM HCL 1 MG/ML 2ML VIAL ONE (14:03)
--- NOTE | 2022-02-11 14:13 | Anesthesiology Progress Note ---
Date of Service February 11, 2022 Anesthesia Post Procedure Vital Signs Vital Signs: Temp Pulse Pulse Pulse Resp BP BP 02/11/22 13:32 36.7 C 87 18 142/94 H 02/11/22 09:17 66 139/78 02/11/22 07:26 36.3 C L 74 14 122/79 02/11/22 00:10 36.8 C 62 16 124/78 02/10/22 23:03 75 20 120/78 02/10/22 22:12 78 20 119/86 02/10/22 20:40 77 20 136/88 02/10/22 19:13 80 20 127/76 02/10/22 18:40 88 18 129/80 02/10/22 16:14 36.8 C 87 18 126/89 Pulse Ox O2 Del Method 02/11/22 13:32 87 L Room Air 02/11/22 09:17 02/11/22 07:26 99 Room Air 02/11/22 00:10 99 Room Air 02/10/22 23:03 99 Room Air 02/10/22 22:12 97 Room Air 02/10/22 20:40 99 Room Air 02/10/22 19:13 98 Room Air 02/10/22 18:40 98 Room Air 02/10/22 16:14 98 Room Air Transfer of Care Handoff Completed per policy Notes Mental Status: alert / awake / arousable and participated in evaluation Patient Amnestic to Procedure: Yes Nausea / Vomiting: adequately controlled Pain: adequately controlled Airway Patency, RR, SpO2: stable & adequate BP & HR: stable & adequate Hydration State: stable & adequate Anesthetic Complications: no major complications apparent and Pt Satisfied with anesthetic care
--- NOTE | 2022-02-11 14:56 | GI REPORT ---
Patient Name: Alma Lyons Procedure Date: 02/11/2022 1:52 PM Date of : 1965 Admit Type: Inpatient Age: 56 Gender: Female Attending MD: Jameson Christina MD Procedure: Colonoscopy Providers: Jameson Christina MD Referring MD: Tori Stephen Md Indications: Abnormal CT of the GI tract Medicines: Monitored Anesthesia Care Complications: No immediate complications. Estimated blood loss: None. Estimated Blood Loss: Estimated blood loss: none. Procedure: Pre-Anesthesia Assessment: - Prior Anticoagulants: The patient has taken no previous anticoagulant or antiplatelet agents. - ASA Grade Assessment: III - A patient with severe systemic disease. After I obtained informed consent, the scope was passed under direct vision. Throughout the procedure, the patient's blood pressure, pulse, and oxygen saturations were monitored continuously. The Colonoscope was introduced through the anus and advanced to the cecum, identified by appendiceal orifice and ileocecal valve. The colonoscopy was performed without difficulty. The patient tolerated the procedure well. The quality of the bowel preparation was poor. Findings: A large amount of semi-solid solid stool was found in the entire colon. A colonic decompression tube was placed. Estimated blood loss: none. air was decompressed on withdrawal from the colon. the sigmoid colon was mildly dilated, the colonic mucosa appeared healthy. Impression: - Preparation of the colon was poor. - Stool in the entire examined colon. severe constipation and possible mild volvulus. decompressed and colonic tube placed. - No specimens collected. Recommendation: - Return patient to [facility] for [facility] care. - Clear liquid diet today. -golytely 4L prep starting now to clear out the remaining stool -KUB in the morning, if improved can likely remove colonic tube tomorrow Jameson Christina MD 02/11/2022 2:55:37 PM This report has been signed electronically. Note Initiated On: 02/11/2022 1:52 PM Number of Addenda: 0 I attest to the content of the Intraoperative Record and orders documented therein, exceptions below {[id number]}
--- NOTE | 2022-02-11 15:01 | Hospitalist Progress Note ---
Date of Service February 11, 2022 Assessment & Plan (1) Volvulus of sigmoid colon: Plan: Colonoscopy noted; GoLytely order noted; clear liquids initiated (2) Hypertension: Plan: Blood pressure stableno particular changes made (3) Abdominal pain: Plan: As above Admission and Anticipated Discharge Date Admission Date: February 10, 2022 Subjective Follow-up of presentation with upper abdominal painsymptoms improved but KUB showed slight increase in colonic distention; colonoscopy results noted Physical Exam Physical Exam: Constitutional and general: No acute distress, looks biologic age Head and face: No puffiness, atraumatic Eyes: No scleral icterus, extraocular movements normal Neck: Supple, no JVD Musculoskeletal: No acute joint swelling, no bony abnormalities Skin/dermatologic/integument: No rash, no purpura Hematologic and lymphatic: pallor none, no petechia Gastrointestinal/abdomen: Nondistended, soft, nonacute Neurologic: Cranial nerves intact, nonfocal Psychiatry: Awake, alert, pleasant, communicative Cardiovascular: Heart rhythm regular, no rub, no murmur, no gallop Respiratory: Chest movements equal, no use of accessory muscles, no adventitious sounds Extremities: No edema, no cyanosis Results & Data Results & Data ([facility]) Vital Signs (Past 12 Hours) Vital Signs Temp Pulse Resp BP Pulse Ox O2 Del Method 02/11/22 14:47 92 H 16 126/88 97 Room Air 02/11/22 14:32 99 H 14 110/74 98 Room Air 02/11/22 13:32 36.7 C 87 18 142/94 H 87 L Room Air 02/11/22 09:17 66 139/78 02/11/22 07:26 36.3 C L 74 14 122/79 99 Room Air Laboratory Results Laboratory Results - last 24 hr 02/10/22 02/10/22 02/10/22 17:14 17:14 18:48 WBC 10.83 H RBC 4.70 Hgb 12.6 Hct 37.4 MCV 79.6 L MCH 26.8 MCHC 33.7 RDW Std Deviation 38.6 RDW Coeff of Anita 13.5 Plt Count 247 MPV 10.5 Immature Gran % (Auto) 0.3 Neut % (Auto) 60.8 Lymph % (Auto) 30.4 [place] % (Auto) 5.6 Eos % (Auto) 2.3 Baso % (Auto) 0.6 Neut # (Auto) 6.58 H Lymph # (Auto) 3.29 [place] # (Auto) 0.61 Eos # (Auto) 0.25 Baso # (Auto) 0.07 Immature Gran # (Auto) 0.03 H Sodium 139 Potassium 3.9 Chloride 104 Carbon Dioxide 28 Anion Gap 7 BUN 14 Creatinine 0.70 Est Cr Clr Drug Dosing 79.7 Est GFR ( Amer) 113.0 Est GFR (Non-Af Amer) 97.5 BUN/Creatinine Ratio 20.0 Glucose 94 Estimat Average Glucose Hemoglobin A1c Lactate Calcium 9.8 Phosphorus Magnesium Total Bilirubin 0.5 AST 18 ALT 17 Alkaline Phosphatase 72 Total Protein 8.0 Albumin 4.6 Globulin 3.4 Albumin/Globulin Ratio 1.4 Triglycerides Cholesterol LDL Cholesterol, Calc VLDL Cholesterol, Calc HDL Cholesterol Cholesterol/HDL Ratio Lipase 27 Urine Color Yellow Urine Appearance Clear Urine pH 7.0 Ur Specific [place] > 1.045 H Urine Protein Negative Urine Glucose (UA) Negative Urine Ketones Negative Urine Blood Negative Urine Nitrite Negative Urine Bilirubin Negative Urine Urobilinogen Negative Ur Leukocyte Esterase Negative SARS-CoV-2, RNA, NAAT 02/10/22 02/11/22 02/11/22 19:20 08:56 08:56 WBC 7.27 RBC 4.55 Hgb 12.0 Hct 37.0 MCV 81.3 MCH 26.4 MCHC 32.4 RDW Std Deviation 39.4 RDW Coeff of Anita 13.3 Plt Count 222 MPV 10.7 Immature Gran % (Auto) 0.1 Neut % (Auto) 59.2 Lymph % (Auto) 32.3 [place] % (Auto) 5.6 Eos % (Auto) 2.2 Baso % (Auto) 0.6 Neut # (Auto) 4.30 Lymph # (Auto) 2.35 [place] # (Auto) 0.41 Eos # (Auto) 0.16 Baso # (Auto) 0.04 Immature Gran # (Auto) 0.01 Sodium 141 Potassium 4.0 Chloride 107 Carbon Dioxide 28 Anion Gap 6 BUN 11 Creatinine 0.69 Est Cr Clr Drug Dosing 80.8 Est GFR ( Amer) 113.6 Est GFR (Non-Af Amer) 98.0 BUN/Creatinine Ratio 15.9 Glucose 90 Estimat Average Glucose Hemoglobin A1c Lactate Calcium 9.2 Phosphorus 4.3 Magnesium 1.9 Total Bilirubin 0.7 AST 16 ALT 14 Alkaline Phosphatase 67 Total Protein 7.4 Albumin 4.1 Globulin 3.3 Albumin/Globulin Ratio 1.2 Triglycerides 99 Cholesterol 154 LDL Cholesterol, Calc 91 VLDL Cholesterol, Calc 20 HDL Cholesterol 43 Cholesterol/HDL Ratio 3.6 Lipase Urine Color Urine Appearance Urine pH Ur Specific [place] Urine Protein Urine Glucose (UA) Urine Ketones Urine Blood Urine Nitrite Urine Bilirubin Urine Urobilinogen Ur Leukocyte Esterase SARS-CoV-2, RNA, NAAT NEGATIVE 02/11/22 02/11/22 08:56 09:50 WBC RBC Hgb Hct MCV MCH MCHC RDW Std Deviation RDW Coeff of Anita Plt Count MPV Immature Gran % (Auto) Neut % (Auto) Lymph % (Auto) [place] % (Auto) Eos % (Auto) Baso % (Auto) Neut # (Auto) Lymph # (Auto) [place] # (Auto) Eos # (Auto) Baso # (Auto) Immature Gran # (Auto) Sodium Potassium Chloride Carbon Dioxide Anion Gap BUN Creatinine Est Cr Clr Drug Dosing Est GFR ( Amer) Est GFR (Non-Af Amer) BUN/Creatinine Ratio Glucose Estimat Average Glucose 123 Hemoglobin A1c 5.9 H Lactate 0.9 Calcium Phosphorus Magnesium Total Bilirubin AST ALT Alkaline Phosphatase Total Protein Albumin Globulin Albumin/Globulin Ratio Triglycerides Cholesterol LDL Cholesterol, Calc VLDL Cholesterol, Calc HDL Cholesterol Cholesterol/HDL Ratio Lipase Urine Color Urine Appearance Urine pH Ur Specific [place] Urine Protein Urine Glucose (UA) Urine Ketones Urine Blood Urine Nitrite Urine Bilirubin Urine Urobilinogen Ur Leukocyte Esterase SARS-CoV-2, RNA, NAAT PG Care Time/CCT Total # of Minutes Spent Total Time Spent with Patient: Total time spent is greater than 50% in coordination of care (as documented) at patient's floor/unit and/or counseling patient: Coding Level of Care Code 42478 Subseq Obs Care Lvl 2 Diagnoses Volvulus of sigmoid colon K56.2 Hypertension I10 Abdominal pain R10.84 Abdominal location: generalized (1) Abdominal pain Abdominal location: generalized Qualified Code(s): R10.84 - Generalized abdominal pain
[2022-02-11] MEDS ORDERED: LAVAGE SOLUTION 4000ML PO SCH (16:00)
[2022-02-11] MEDS: ENOXAPARIN INJ 40 MG/0.4 ML SYR SQ SCH (16:51)
[2022-02-12 06:29] LABS: Basophils # (auto) 0.05 K/uL (0-0.2); Basophils % (auto) 0.6 %; Eosinophils % (auto) 2.5 %; Hematocrit (blood only) 35.6 % (34.1-44.9); Hemoglobin 11.7 g/dl (12.0-16.0); Immature Granulocytes # (auto) 0.01 K/uL (0.00-0.02); Immature Granulocytes % (auto) 0.1 %; Lymphocytes # (auto) 2.82 K/uL (1.2-3.4); Lymphocytes % (auto) 35.4 %; Mean Corpuscular Hemoglobin 26.5 pg (25.0-34.0); Mean Corpuscular Hgb Conc 32.9 g/dL (32.0-36.0); Mean Corpuscular Volume 80.7 fL (80.0-100.0); Mean Platelet Volume 10.8 fL (9.4-12.3); Monocytes # (auto) 0.46 K/uL (0.24-0.82); Monocytes % (auto) 5.8 %; Neutrophils # (auto) 4.43 K/uL (1.4-6.5); Neutrophils % (auto) 55.6 %; Platelet Count 227 K/uL (130-400); RDW Coefficient of Variation 13.2 % (11.5-14.5); RDW Standard Deviation 38.2 fL (36.4-46.3); Red Blood Count 4.41 M/uL (3.93-5.22); White Blood Count 7.97 K/ul (4.8-10.8)
[2022-02-12 06:53] LABS: Albumin Globulin Ratio 1.3 (0.9-2); Bilirubin,Total 0.6 mg/dl (0.2-1.0); Calcium 9.1 mg/dl (8.5-10.1); Creatinine Clr Calc Pharmacy 85.8 ml/min; Est GFR (African American) 115.8 ml/min; Est GFR (Non-African American) 99.9 ml/min; Globulin 3.1 gm/dl (2.5-4.0); Magnesium 1.8 mg/dl (1.7-2.4); Potassium 3.6 mmol/L (3.5-5.1); Total Protein 7.1 gm/dl (6.0-8.3)
[2022-02-12] MEDS ORDERED: PANTOprazole 40 MG in SYRINGE 0 ML IV SCH (09:00)
[2022-02-12] MEDS: amLODIPine BESYLATE 5 MG TAB PO SCH (09:17)
[2022-02-12] MEDS: SODIUM CHLORIDE 0.9% 1000ML 1,000 ML IV SCH (09:17)
[2022-02-12] MEDS: OLMESARTAN MEDOXOMIL 20 MG TAB PO SCH (09:17)
--- NOTE | 2022-02-12 10:12 | XRay Report ---
KUB HISTORY: Colonic distention. possible volvulus COMPARISON: None. FINDINGS: Colonic tube terminates at the expected location of the cecum. The colon is decompressed. N o dilated loops of bowel to suggest an obstruction. No renal calculi. No ureteral calculi. No pneumo peritoneum or pneumatosis. IMPRESSION: Interval decompression of the colon with the colonic tube terminating at the cecum. ACT 112: Negative or not required by law. Electronically signed by: Leonides Draper M.D. 02/12/2022 10:11 AM
--- NOTE | 2022-02-12 11:04 | Communication Note ---
Date of Service: February 12, 2022 Patient s a 56 yo female who presented with concerns for a sigmoid volvulus. She underwent a colonoscopy for decompression on 02/11/22. She was given a bowel prep to relieve her constipation and a rectal tube was placed. KUB from this morning is notably improved. She should begin Miralax 17 gm daily as maintenance. She should follow-up in the outpatient setting for a formal colonoscopy as her scope yesterday was not able to screen for polyps/CRC due to lack of preparation. Our office will make contact to arrange this. Given improvement on KUB, the rectal tube can be removed today and diet can be advanced. I would advise monitoring for further issues. Agree with ANA Giang as above Patient tolerating full liquids at present Discussed findings of KUB and hospital course with daughter via telephone Abd: Soft, NT, ND, +BS Recommend advancing diet as tolerated Bowel regimen on Discharge with Miralax 17 g by mouth daily
--- NOTE | 2022-02-12 15:24 | Hospitalist Progress Note ---
Date of Service February 12, 2022 Assessment & Plan (1) Volvulus of sigmoid colon: Plan: Possible volvulus, constipationstatus post decompression; KUB much better; advance diet, removal of rectal tube, MiraLAX, GI follow-up appreciated (2) Hypertension: Plan: Blood pressure stableno particular changes made Admission and Anticipated Discharge Date Admission Date: February 10, 2022 Subjective Follow-up of presentation with abdominal painmuch better, status post colonic decompression Physical Exam Physical Exam: Constitutional and general: No acute distress, looks biologic age Head and face: No puffiness, atraumatic Eyes: No scleral icterus, extraocular movements normal Neck: Supple, no JVD Musculoskeletal: No acute joint swelling, no bony abnormalities Skin/dermatologic/integument: No rash, no purpura Hematologic and lymphatic: pallor none, no petechia Gastrointestinal/abdomen: Nondistended, soft, nonacute Neurologic: Cranial nerves intact, nonfocal Psychiatry: Awake, alert, pleasant, communicative Cardiovascular: Heart rhythm regular, no rub, no murmur, no gallop Respiratory: Chest movements equal, no use of accessory muscles, no adventitious sounds Extremities: No edema, no cyanosis Results & Data Results & Data ([facility]) Vital Signs (Past 12 Hours) Vital Signs Temp Pulse Resp BP Pulse Ox O2 Del Method 02/12/22 09:16 83 128/75 02/12/22 07:21 36.6 C 77 16 114/76 98 Room Air Laboratory Results Laboratory Results - last 24 hr 02/12/22 02/12/22 05:49 05:49 WBC 7.97 RBC 4.41 Hgb 11.7 L Hct 35.6 MCV 80.7 MCH 26.5 MCHC 32.9 RDW Std Deviation 38.2 RDW Coeff of Anita 13.2 Plt Count 227 MPV 10.8 Immature Gran % (Auto) 0.1 Neut % (Auto) 55.6 Lymph % (Auto) 35.4 [place] % (Auto) 5.8 Eos % (Auto) 2.5 Baso % (Auto) 0.6 Neut # (Auto) 4.43 Lymph # (Auto) 2.82 [place] # (Auto) 0.46 Eos # (Auto) 0.20 Baso # (Auto) 0.05 Immature Gran # (Auto) 0.01 Sodium 141 Potassium 3.6 Chloride 107 Carbon Dioxide 27 Anion Gap 7 BUN 10 Creatinine 0.65 Est Cr Clr Drug Dosing 85.8 Est GFR ( Amer) 115.8 Est GFR (Non-Af Amer) 99.9 Fasting Glucose 88 Calcium 9.1 Phosphorus 4.0 Magnesium 1.8 Total Bilirubin 0.6 AST 17 ALT 14 Alkaline Phosphatase 65 Total Protein 7.1 Albumin 4.0 Globulin 3.1 Albumin/Globulin Ratio 1.3 PG Care Time/CCT Total # of Minutes Spent Total Time Spent with Patient: Total time spent is greater than 50% in coordination of care (as documented) at patient's floor/unit and/or counseling patient: Coding Level of Care Code 68361 Subseq Hosp Care Lvl 1 Diagnoses Volvulus of sigmoid colon K56.2 Hypertension I10
[2022-02-12] MEDS: ENOXAPARIN INJ 40 MG/0.4 ML SYR SQ SCH (16:17)
--- NOTE | 2022-02-12 18:19 | Discharge Summary ---
Date of Service February 12, 2022 Admission HPI Per Admitting Provider 56yo female with a history of HTN presents with a two-day history of left flank pain. Pain started gradually and have been worsening. Denies other symptoms or any history of similar symptoms. Of note, patient is exclusively Mongolian- speaking, and requires an court interpreter if her daughter is not present at the time . Patient went to urgent care yesterday out of concern the pain could be cardiac in origin - at urgent care, EKG was done and was reportedly unremarkable. KUB reportedly showed some dilated loops of bowel which prompted patient to present to the ED. Patient also endorses mild SOB. Denies urinary symptoms or pain with bowel movements. Patient denies fever, chills, headache, change in vision, CP, abdominal pain, nausea, vomiting, diarrhea, lightheadedness, dizziness, vertigo, weakness, numbness, tingling, or other symptoms. No recent illnesses, no falls or recent injury. Surrogate decision-maker in case of an emergency: Karley Mathew (daughter - c ell: [phone]) Principal Diagnosis Possible sigmoid volvulus Discharge Exam Constitutional and general: No acute distress, looks biologic age Head and face: No puffiness, atraumatic Eyes: No scleral icterus, extraocular movements normal Neck: Supple, no JVD Musculoskeletal: No acute joint swelling, no bony abnormalities Skin/dermatologic/integument: No rash, no purpura Hematologic and lymphatic: pallor none, no petechia Gastrointestinal/abdomen: Nondistended, soft, nonacute Neurologic: Cranial nerves intact, nonfocal Psychiatry: Awake, alert, pleasant, communicative Cardiovascular: Heart rhythm regular, no rub, no murmur, no gallop Respiratory: Chest movements equal, no use of accessory muscles, no adventitious sounds Extremities: No edema, no cyanosis Discharge Data Allergies Allergy/AdvReac Type Severity Reaction Status Date / Time shrimp Allergy Intermediate ITCHY HIVES Verified 02/10/22 19:17 Consultations 02/10/22 19:51 ED Decision to Admit Stat 02/11/22 00:18 Consult Gastroenterology Routine Procedures Performed Operation Date: 02/11/22 16:45 Actual Procedures p Colonoscopy with Decompression Tube Magaly - Jameson Christina MD Ordered Studies 02/10/22 17:30 CT abd pelvis IV con only Stat CT angio chest PE protocol Stat Hospital Course (1) Volvulus of sigmoid colon: Possible volvulus, constipationstatus post decompression; KUB much better; advanced diet, removed rectal tube; tolerated regular dinner; she really wants to go home; received communication from GI via nursing can go from their perspective if tolerates; will dischargeGI follow-up (2) Hypertension: Blood pressure stableno particular changes made Total Time Total Time Spent Total Time Spent (In Minutes): 25 Discharge Plan Discharge Items Patient Disposition: Home - Self-Care Reason For Visit: ABNORMAL ABDOMINAL LABS Discharge Diagnosis: Possible sigmoid volvulus Activity: Resume your previous activity Non-emergency contact: Primary Care Provider and Substation Superintendent Call non-emergency contact if: your symptoms worsen Follow-up/Referrals: Krishna Cabrera, DO [Physician] - (Posthospitalization follow-upseen by you in house) PCP,NO [Primary Care Provider] - Diet: Heart Healthy Addtl Attending Provider Instructions: Take MiraLAX 17 g daily Follow-up with your primary doctor in about a week Pending Studies at Discharge: No Stand-Alone Forms: My [facility], Smoking Cessation Medications and DC Order Prescriptions: New polyethylene glycol 3350 [Miralax] 17 gram Powder In Packet 17 g PO DAILY Qty: 100 0RF Continued multivitamin Tablet 1 tab PO DAILY omeprazole 20 mg Tablet,Delayed Release (Dr/Ec) 20 mg PO AC Bizoran--From Home Pharmacy 1 tab PO DAILY Rx Instructions: GOOGLED---BIZORAN 5MG/20 MG--AMLODIPINE/OLMESARTAN Discharge Orders: Discharge Order (Routine); Ordered 02/12/22 Ordered By: Tori Stephen Admission Data Admit Date/Time: 02/12/22 15:21 Attending Provider: Tori Stephen Admit Provider: Ata Feng Primary Care Provider: PCP,NO Other Providers: Aashish Schmidt ; Krishna Cabrera Other Interventions: Discharge Summary Assessment (RN) Last Done: 02/11/22 15:28 Coding Level of Care Code D/C DAY MANAGEMENT <30 MINS Diagnoses Volvulus of sigmoid colon K56.2 Hypertension I10
--- NOTE | 2022-02-12 23:42 | Billing Data ---
Date of Service February 12, 2022 Coding Level of Care Code 94894 Initial Inpt Care Lvl 2
[2022-02-13] MEDS ORDERED: POLYETHYLENE (MIRALAX) 17 GM PACK PO SCH (09:00)
== END 2022-02-12 19:55 | disposition home or self-care (01) | DRG 390 ==
LOC: ED 16:08 → 3E 16:08 → SUATTDRO 21:10 → 3E 23:16
DX: K56.2 Volvulus; K59.00 Constipation, unspecified; I10 Essential (primary) hypertension